=== PATIENT | female | born 1945 ===

== ENCOUNTER 2025-09-13 11:05 | Emergency (ER) | payer MEDICARE, SELFPAY ==
--- NOTE | ~2025-09-13 | CT_ITS ---
EXAMINATION: CT ABDOMEN AND PELVIS WITHOUT CONTRAST CLINICAL INFORMATION: left flank pain COMPARISON: None available. TECHNIQUE: Multidetector volumetric imaging was performed from the superior aspect of the liver through the pubic symphysis. Sagittal and coronal reformatted images were obtained on the technologist's workstation. This CT examination was performed using dose optimization techniques as appropriate, variously including the following: *Automated exposure control *Adjustment of mA and/or kV according to patient size (this includes techniques or standardized protocols for targeted exams where dose is matched to indication/reason for exam; i.e. extremities or head) *Use of iterative reconstruction technique FINDINGS: LUNG BASES: The visualized lung bases are unremarkable. LIVER, GALLBLADDER, AND BILIARY TREE: The liver is normal in size, shape, and attenuation. No focal hepatic lesion or biliary ductal dilatation is present. The gallbladder is unremarkable with no evidence of radiopaque gallstones, gallbladder wall thickening, or obvious pericholecystic inflammatory changes. PANCREAS: Unremarkable. SPLEEN: Unremarkable. ADRENAL GLANDS: Unremarkable. KIDNEYS AND URETERS: The kidneys are normal in size, shape, and attenuation. No hydronephrosis, hydroureter, or calculi seen. No perinephric stranding. BLADDER: Unremarkable. GASTROINTESTINAL TRACT: The gastrointestinal tract is unremarkable. The appendix is not clearly visualized. ABDOMINAL WALL: No significant hernia is appreciated. LYMPH NODES: A mildly prominent left inguinal lymph node is present without clear adenopathy. VASCULAR: Moderate atherosclerotic calcification is present. PELVIC VISCERA: Uterus and adnexa are unremarkable. OSSEOUS STRUCTURES: There is coarse trabeculation involving L3 vertebra with thickened cortex and increased AP diameter consistent with Paget's disease. There is also moderate superior and inferior endplate compression fractures. There is nonsegmentation of the spinous processes L1-L2-L3. They appear sclerotic. L4-5 demonstrates moderate disc space narrowing with vacuum phenomena The right side of L5 is sacralized. There is coarse trabeculation involving the right iliac bone CT/CT abdomen pelvis wo IV con IMPRESSION: There are no findings to explain the patient's left flank pain. Paget's disease: There is involvement of the right iliac bone and the L3 vertebral body. There is also associated moderate compression fracture of L3. Nonsegmentation of spinous processes L1-L3 and sacralized L5 segment. Fleischner guidelines were followed. Electronically signed by: Arjun Santoyo MD 09/13/2025 12:28 PM EDT RP
[2025-09-13 11:24] VITALS: BP 108/58; BP 146/72; PULSE 80; PULSE 97; RESP 18; TEMP 36.4; O2SAT 95; O2SAT 98; BMI 26.2
--- NOTE | 2025-09-13 11:28 | ED.ABDPAIN ---
HPI - Abdominal Pain General Chief Complaint: Abdominal Pain Stated Complaint: L FLANK [id number], SOB W/PAIN PER EMS Time Seen by Provider: 09/13/25 11:07 Source: patient and EMS Mode of arrival: EMS Limitations: no limitations History of Present Illness ED Provider: HPI narrative: 80-year-old woman who reports to be bed-bound, presenting with left flank pain/anterior abdominal pain, low back pain for the past 2 weeks, went to see her co chairman at [facility] to go over CT findings, and mentioned to them that she is having this pain and was told to go to the ER, she did not go to [facility] ER because usually they just obtain CAT scans and did not tell me what is going on , she reports that she has been having 1 of her tremors of the body and do during 1 of these episodes something snapped , she has had no chest pain or shortness of breath anything outside of her usual state, no obstipation reported no hematemesis hematochezia, she has chronic issues with her left lower extremity nothing you, no new numbness or weakness no numbness in the groin no fevers or chills. Related Data Previous Rx's ?Medication ?Instructions ?Recorded lidocaine 5 % topical patch 1 patch topical DAILY PRN pain #30 09/13/25 ea Allergies Allergy/AdvReac Type Severity Reaction Status Date / Time codeine Allergy Unknown Verified 09/13/25 11:25 Review of Systems Constitutional: Reports as per [facility] Social History Social History Advance Directives: No Advance Directives Information Provided: Yes Do you have a plan to hurt others: No Plan Physical Exam ED Exam Exam: General: ?Appears of stated age, examined on the [place] ? ?PERRLA, EOMI, MMM, ? Neck: Supple, no LAD ? ?CV: RRR, ? ?Resp: ?No wheezing rales rhonchi no stridor moving air well ? Abd: ?Bowel sounds are present, tenderness along abdominal muscle wall all along on the left side, as well as lumbar area paraspinal, ? ?MSK: Able to lift her left lower extremity of the gurney not as high up as the right extremity, deep tendon reflexes +1 bilaterally, distally decreased dorsiflexion compared to the right side, distal pulses intact, no deformity no shortening, no sensory deficits ? Skin: Warm, dry, intact, ? ?Neuro: ?Alert and oriented x3, moving upper and lower extremities symmetrically, no obvious facial asymmetry noted, cranial nerves 2-12 intact Vital Signs: Vital Signs - 24 hr 09/13/25 11:24 09/13/25 12:18 Temperature 97.6 F 98.1 F Pulse Rate 80 62 Respiratory Rate 18 17 Blood Pressure 146/72 H 131/49 L Pulse Oximetry 98 98 Oxygen Delivery Method Room Air Room Air BMI result Body Mass Index 26.2 Medical Decision Making Medical Decision Making [facility] Narrative: 11:32 AM 09/13/2025 (Dr. Clifford Weaver): Presenting with what seems to be musculoskeletal pain over the back and front of the abdomen as well without any obstipation, I feel like she is having most of the tenderness along the abdominal wall, there was no rashes, this started with some type of minimal exacerbating event and I think muscle spasm is a big contributor of this, there was no new neurologic deficits outside of her left lower extremity chronic weakness, she reports to be bed-bound, has VNA at home and states she is otherwise safe at home, I will obtain imaging of the abdomen and back, reviewed CT findings that she had at [facility] in brought the report with her from August 18 there was no pneumothorax or any other abnormal findings and she saw her co chairman today 1:14 PM 09/13/2025 (Dr. Clifford Weaver): Discussed CT findings with the patient, she is comfortable with discharge Differential Diagnosis Differential Diagnoses: The differential diagnosis associated with the presentation includes (Compression fracture, rib fracture, diverticulitis, renal colic, spasm, diskitis, cauda equina) Admission/Observation Consideration of admission/observation: Escalation of care including admission/observation considered Lab Data [facility] Lab Attestation statement: I reviewed the patient's lab results. 09/13/25 11:51 09/13/25 11:51 Labs: Lab Results 09/13/25 Range/Units 11:51 WBC 8.5 (4.8-10.8) X10*3/uL RBC 4.99 (4.20-5.50) X10*6/uL Hgb 14.4 (12.0-16.0) g/dl Hct 44.2 (37.0-47.0) % MCV 88.6 (80.0-98.0) fL MCH 28.9 (27.0-33.0) pg MCHC 32.6 (31.0-35.0) g/dl RDW 13.1 (11.0-16.0) % Plt Count 260 (160-400) X10*3/uL MPV 8.9 L (9.4-12.3) fL Immature Gran % (Auto) 0.4 (0.0-0.4) % Neut % (Auto) 76.7 H (45-73) % Lymph % (Auto) 13.7 L (20-40) % Mccracken % (Auto) 7.3 (2-11) % Eos % (Auto) 1.4 (0-4) % Baso % (Auto) 0.5 (0-2) % Lymph # (Auto) 1.2 (1.2-4.9) X10*3/uL Mccracken # (Auto) 0.6 (0.1-1.2) X10*3/uL Eos # (Auto) 0.1 (0.0-0.4) X10*3/uL Baso # (Auto) 0.0 (0.0-0.2) X10*3/uL Abs Immat Gran (auto) 0.03 (0.00-0.03) X10*3/uL Absolute Neuts (auto) 6.5 (2.0-8.3) x10*3/uL Absolute Nucleated RBC 0.000 (0.0-0.012) X10*3/uL Nucleated RBC % (auto) 0.0 (0.0-0.2) /100WBC Sodium 138 (135-145) mmol/L Potassium 4.6 (3.3-5.1) mmol/L Chloride 107 (96-108) mmol/L Carbon Dioxide 26 (22-29) mmol/L Anion Gap 10 L (12-20) BUN 12 (9-16) mg/dL Creatinine 0.69 (0.5-1.4) mg/dL Estim Creat Clear Calc 60.8 Estimated GFR > 60 Random Glucose 86 (60-115) mg/dL Calcium 9.5 (8.4-10.2) mg/dL Total Bilirubin 0.4 (0.0-1.0) mg/dL AST 25 (5-31) U/L ALT 13 (0-31) U/L Alkaline Phosphatase 70 (39-117) U/L Total Protein 7.2 (6.5-8.0) g/dL Albumin 4.1 (3.5-5.0) g/dL Lipase 27 (8-78) U/L Radiology Impression Discussion of test interpretation with radiology: I have reviewed the radiologist's reading. (There are no findings to explain the patient's left flank pain. Paget's disease: There is involvement of the right iliac bone and the L3 vertebral body. There is also associated moderate compression fracture of L3. Nonsegmentation of spinous processes L1-L3 and sacralized L5 segment.) External Record Review External record reviewed: Outpatient record Prescription Management I considered prescription management with: Pain Medication Chronic Conditions Patient?s care impacted by: Other (Paget's disease) Medications Administered Discontinued Medications Generic Name Dose Route Start Last Admin Trade Name Freq PRN Reason Stop Dose Admin Diazepam 2 mg 09/13/25 11:25 09/13/25 11:45 Diazepam 2 Mg Tablet PO 09/13/25 11:26 2 mg ONCE ONE Administration Ketorolac Tromethamine 15 mg 09/13/25 11:25 09/13/25 11:46 Ketorolac Tromethamine 15 Mg/Ml Vial IM 09/13/25 11:26 15 mg ONCE ONE Administration Lidocaine 1 patch 09/13/25 11:25 09/13/25 12:10 Lidocaine 4 % Patch Adh..Patch TRANSDERMA 09/13/25 11:26 1 patch ONCE ONE Administration Protocol Discharge Plan Discharge Clinical Impression: Compression of lumbar vertebra Patient Disposition: Home, Self-Care Instructions: Kyphoplasty (DC), Vertebral Compression Fracture (ED) Additional Instructions: See your CT findings below, your symptoms are associated with back pain and spasm around the L3 vertebral body compression, your blood work has been reassuring, cat scan did not reveal any intra-abdominal pathology, I recommend 975 mg every 6 hours around the clock for pain control, lidocaine patches to the area, follow up with the primary care provider, sometimes additional procedures can be done for this on outpatient basis. Kyphoplasty is a minimally invasive surgical procedure used to treat painful vertebral compression fractures, this has to be discussed with the your the PCP and you we will need to be referred to a specialist who does these procedures. This can be done on outpatient basis Any other issues concerns come back to the ER There are no findings to explain the patient's left flank pain. Paget's disease: There is involvement of the right iliac bone and the L3 vertebral body. There is also associated moderate compression fracture of L3. Nonsegmentation of spinous processes L1-L3 and sacralized L5 segment. Prescriptions: New lidocaine 5 % adhesive patch,medicated 1 patch topical DAILY PRN (Reason: pain) Qty: 30 0RF Rx Instructions: leave on most painful area for up to 12 hrs Print Language: Slovenian
--- NOTE | 2025-09-13 11:30 | PC.NURSE ---
Pt A&O X4 VSS C/O abdominal pain. No Nausea. No other complaints at this time. Awaiting provider. Pt on 11/24 monitor.
[2025-09-13 11:55] LABS: MANUAL DIFF FLAG NO
[2025-09-13 12:08] LABS: Hematocrit 44.2 % (37.0-47.0); Hemoglobin 14.4 g/dl (12.0-16.0); Imm Gran Abs Auto 0.03 X10*3/uL (0.00-0.03); Imm Gran Pct Auto 0.4 % (0.0-0.4); Lymphocytes Absolute Auto 1.2 X10*3/uL (1.2-4.9); Mean Corpuscular HGB Conc 32.6 g/dl (31.0-35.0); Mean Corpuscular Hemoglobin 28.9 pg (27.0-33.0); Mean Corpuscular Volume 88.6 fL (80.0-98.0); NRBC Abs Auto 0.000 X10*3/uL (0.0-0.012); NRBC Pct Auto 0.0 /100WBC (0.0-0.2); Platelet Count 260 X10*3/uL (160-400); Red Blood Count 4.99 X10*6/uL (4.20-5.50); White Blood Count 8.5 X10*3/uL (4.8-10.8)
[2025-09-13] MEDS: Lidocaine 4 % Patch ADH..PATCH 1 PATCH TRANSDERMA (12:10)
[2025-09-13 12:11] LABS: Alanine Aminotransferase 13 U/L (0-31); Albumin Level 4.1 g/dL (3.5-5.0); Alkaline Phosphatase 70 U/L (39-117); Anion Gap 10 (12-20); Aspartate Amino Transferase 25 U/L (5-31); Blood Urea Nitrogen 12 mg/dL (9-16); Calcium 9.5 mg/dL (8.4-10.2); Carbon Dioxide 26 mmol/L (22-29); Chloride 107 mmol/L (96-108); Creatinine Clr Calc Pharmacy 60.8; Estimated Glomerular Filt Rate > 60; Lipase 27 U/L (8-78); Potassium 4.6 mmol/L (3.3-5.1); Sodium 138 mmol/L (135-145); Total Protein 7.2 g/dL (6.5-8.0)
[2025-09-13 12:18] VITALS: BP 131/49; PULSE 62; RESP 17; TEMP 36.7; O2SAT 98
[2025-09-13 16:35] VITALS: BP 116/40; PULSE 76; RESP 15; TEMP 36.4; O2SAT 96
[2025-09-13 16:37] VITALS: BP 116/40; PULSE 76; RESP 15; TEMP 36.4; O2SAT 96
== END 2025-09-13 16:37 | disposition home or self-care (01) ==
PROVIDERS: Emergency Provider Emergency Medicine; PCP Internal Medicine
DX: M48.56XA Collapsed vertebra, not elsewhere classified, lumbar region, initial encounter for fracture (principal); R10.9 Unspecified abdominal pain
CPT/HCPCS: 36415; 74176; 80053; 83690; 85025; 96372; 99284; J1885

== ENCOUNTER → 2025-09-13 11:25 | Outpatient (BNV) | payer MEDICARE, SELFPAY | PROVIDERS: Emergency Provider Emergency Medicine; PCP Internal Medicine; Visit Provider Radiology Diagnostic Radiology | DX: R10.9 Unspecified abdominal pain (principal) | CPT/HCPCS: 74176 ==